=== PATIENT | male | born 1980 | race African-American/Black ===

== ENCOUNTER 2019-08-04 22:02 | Emergency (ER) | payer OTHER ==
[~2019-08-04] VITALS: Ht 177.8 cm; Wt 93.9 kg
[2019-08-04 23:00] VITALS: BP 124/86
[2019-08-05] MEDS ORDERED: DOXYCYCLINE 10100 MG PO (17:22)
[2019-08-05] MEDS ORDERED: NORCO 5-325 TA1 EAC1 PO (17:22)
== END 2019-08-04 23:17 | disposition home or self-care (01) ==
LOC: ER 22:02
DX: T63.301A Toxic effect of unspecified spider venom, accidental (unintentional), initial encounter (principal); F17.210 Nicotine dependence, cigarettes, uncomplicated; Y92.89 Other specified places as the place of occurrence of the external cause

== ENCOUNTER 2019-08-05 16:10 | Emergency (ER) | payer OTHER ==
[~2019-08-05] VITALS: Ht 177.8 cm; Wt 93.9 kg
[2019-08-05] MEDS ORDERED: DOXYCYCLINE 10100 MG PO (17:22)
[2019-08-05] MEDS ORDERED: NORCO 5-325 TA1 EAC1 PO (17:22)
[2019-08-05 17:51] VITALS: BP 115/74
== END 2019-08-05 17:52 | disposition home or self-care (01) ==
LOC: ER 16:10
DX: S80.261A Insect bite (nonvenomous), right knee, initial encounter (principal); F17.210 Nicotine dependence, cigarettes, uncomplicated; W57.XXXA Bitten or stung by nonvenomous insect and other nonvenomous arthropods, initial encounter; Y93.89 Activity, other specified; Y92.89 Other specified places as the place of occurrence of the external cause; Y99.8 Other external cause status

== ENCOUNTER 2019-08-09 17:21 | Inpatient (IN) | payer OTHER ==
[~2019-08-09] VITALS: Ht 177.8 cm; Wt 94.8 kg
[~2019-08-09 17:21] MED LIST: DOXYCYCLINE 10100 MG PO; NORCO 5-325 TA1 EAC1 PO
[2019-08-09 17:25] VITALS: BP 116/87
[2019-08-09 19:32] LABS: ABSOLUTE NEUTROPHILS 10.4 thou/uL (1.4-8.2); BASOPHILS 0.5 % (0.0-2.0); EOSINOPHILS 1.1 % (0.0-3.0); HEMATOCRIT 43.2 % (42.0-52.0); HEMOGLOBIN 14.6 gm/dL (14.0-18.0); LYMPHOCYTES 10.2 % (24.0-44.0); MCH 29.7 pg (26.0-34.0); MCHC 33.7 g/dL (28.0-37.0); MONOCYTES 4.1 % (1.0-8.0); PLATELET COUNT 241 thou/uL (150-400); POLYS 84.1 % (36.0-66.0); RBC 4.91 mil/uL (4.50-6.00); WBC 12.4 thou/uL (4.0-11.0)
[2019-08-09 19:41] LABS: CALCIUM 8.9 mg/dL (8.5-10.1); CREATININE 0.9 mg/dL (0.7-1.3); POTASSIUM 4.1 mmol/L (3.5-5.1)
[2019-08-09 20:32] VITALS: BP 116/70
[2019-08-09 20:41] VITALS: BP 107/64
[2019-08-09] MEDS ORDERED: ROXICODONE5 M2 PO (21:10)
[2019-08-09 21:45] VITALS: BP 121/71
[2019-08-09 23:28] VITALS: BP 129/86
[2019-08-10 03:42] VITALS: BP 135/87
--- NOTE | 2019-08-10 04:37 | NUR ---
ADIMTTED FROM ER UNDER 'S CARE. AXOX4. INDEPENDENT WITH ADLs. RLE CELLULTIIS. SEEN BY STEPH HENDRICKS ACADEMIC ADVISEMENT DIRECTOR FOR . MED REC COMPLETED AND HOME PAIN MEDS RESUMED. VSS. NO S/S ACUTE DISTRESS NOTED OR REPORTED AT THIS TIME. WILL CONT TO MONITOR FOR ANY CHANGES IN CONDITION.
[2019-08-10 07:05] VITALS: BP 114/76
[2019-08-10 15:52] VITALS: BP 111/73
--- NOTE | 2019-08-10 15:56 | NUR ---
PT ADMITTED RELATED TO RLE CELLULITIS. CM REVIEWED CHART AND SPOKE WITH CARE TEAM. CM MET WITH PT AT BEDSIDE THIS DAY. PT IS A&O X4. CM ROLE INTRODUCED. PT INDICATED HE LIVES IN A HOUSE WITH HIS SPOUSE WITH ABOUT 10 STEPS TO ENTER AND 6 STEPS INSIDE. PT INDICATED HE HAD BEEN INDEPENENT WITH GAIT AND ADLS VIRTUAL RECRUITER. PT INDICATED NO DME VIRTUAL RECRUITER. PT INDICATED HIS PCP IS DR. MARCELO DELUCA. PT INDICATED HE PLANS TO RETURN HOME ONCE MEDICALLY STABLE. CM TO FOLLOW INDICATED WITH DC PLANNING.
[2019-08-10 19:35] VITALS: BP 126/77
--- NOTE | 2019-08-10 19:43 | NUR ---
VSS-AFEBRILE. OOB AD IRENE-STEADY ON FEET. BLACK ESCHAR-LIKE BITE ON RIGHT POSTERIOR CALF REMAINS, ERYTHEMA AND SWELLING SURROUND THE WOUND. PO PAIN MEDICATION PROVIDES PARTIAL RELIEF OF PAIN AND DISCOMFORT. PATIENT REQUESTING THAT WOUND CARE PHYSICIAN EVALUATE WOUND BEFORE BEING DISCHARGED.
--- NOTE | 2019-08-11 01:37 | NUR ---
PATIENT AOX4 MAKES NEEDS KNOWN. PATIENT ADMITTED FOR RLE SPIDER BITE. RLE IS WARM TO TOUCH NO REDNESS, BLACK SPOT ON THE BITE PATIENT C/O ITCING PRN BENADRLY GIVEN PER ORDER. PATIENT AMBULATES WITH STEADY GAITS. PATIENT HAD A SHOWER.PATIENT IN BED ASLEEP AT THIS TIME BREATHING REGULAR AND UNLABOURED
[2019-08-11 06:02] LABS: HEMATOCRIT 41.3 % (42.0-52.0); HEMOGLOBIN 13.4 gm/dL (14.0-18.0); MCH 29.3 pg (26.0-34.0); MCHC 32.4 g/dL (28.0-37.0); MCV 90.3 fL (80.0-100.0); RBC 4.58 mil/uL (4.50-6.00); RDW 14.1 % (10.5-14.5); WBC 8.6 thou/uL (4.0-11.0)
[2019-08-11 06:07] LABS: CALCIUM 8.4 mg/dL (8.5-10.1); CREATININE 1.1 mg/dL (0.7-1.3); POTASSIUM 4.4 mmol/L (3.5-5.1)
[2019-08-11 07:16] VITALS: BP 102/71
[2019-08-11 16:30] VITALS: BP 111/75
[2019-08-11 18:58] VITALS: BP 122/80
--- NOTE | 2019-08-11 20:09 | NUR ---
Assumed pt care this am, VS stable. Pt and are questioning why theres is no consult for surgery given the nature of the wound (spider bite), why the blood cultures were never drawn in the ED, as per documentation 08/09 @ 18:41 "blood cultures cancelled: patient already getting antibiotics per Nany". This was prior admission. Pain managed with medication. of the pt has requested for Dr. Snow to be off the case, Dr. Michaud informed. POC followed, no signs and verbalizations of distress noted. Called lab with regards to the deatials of the boold cultures, spoke to Kelly, awating feedback.
--- NOTE | 2019-08-12 04:34 | NUR ---
ASSUMED PT CARE AROUND 193. AXOX4. INDEPENDENT WITH ADLs. VANC TROUGH RESULTS REPORTED TO PHARM Jessica GARCIA. PAIN MANAGED PER MD ORDER. NO S/S ACUTE DISTRESS NOTED OR REPORTED AT THIS TIME. WILL CONT TO MONITOR FOR ANY CHANGES IN CONDITION.
[2019-08-12 07:34] VITALS: BP 120/81
--- NOTE | 2019-08-12 10:06 | NUR ---
Received awake on bed. Due medications given as prescribed, able to swallow meds w/o difficulty. On room air. Up ad navarro, independent with ADLs. Vital signs stable. On regular diet- tolerating well; no nausea, no vomiting and no abdominal pain noted. With spider bite at R LE. Pt complained of pain, due PRN pain meds given as prescribed. Pt's went to the darling this AM and got upset and requested Dr Snow to be off his case; no pending labs as per report received from cook night nurse. Charge nurse talked to laboratory and Dr Enciso re: pt's request- as per Dr Enciso, will see pt today.
[2019-08-12 16:14] VITALS: BP 146/95
[2019-08-12 16:17] VITALS: BP 134/86
[2019-08-12 20:24] VITALS: BP 133/86
--- NOTE | 2019-08-13 04:17 | NUR ---
ASSUMED PT CARE AROUND 1915. AXOX4. FAMILY AT BEDSIDE. ESCORTED PT OUT TO MAIN ENTRANCE SO PT CAN TAKE HIS SON TO THE CAR. PT VERBALIZED THAT HE WATNED TO SMOKE WHILE HE WAS TAKING HIS FAMILY OUT TO CAR. INFORMED PT THAT THIS HOSPITAL IS SMOKING FREE CAMPUS. PT GOT VERY UPSET. ASKED PT IF HE WANTED NICOTINE PATCH, PT DECLINED AND VERBALIZED FRUSTRAION. WALKED ON CAMPUS WITH PT AND HAD A CONVERSATION ABOUT PT'S FRUSTRATION ABOUT BEING CONTAINED AT THE HOSPITAL. CAME BACK TO ROOM SAFELY. WOUND CARE TO R POSTERIOR THIGHT RENDERED AT BEDSIDE. PAIN MEDS GIVEN PER MD ORDER. #15 BLADR ACQUIRED FROM ER AND LIDOCAINE READY IN MEDROOM FOR . NO S/S ACUTE DISTRESS NOTED OR REPORTED AT THIS TIME. WILL CONT TO MONITOR FOR ANY CHANGES IN CONDITION.
[2019-08-13 08:05] VITALS: BP 132/86
--- NOTE | 2019-08-13 08:11 | NUR ---
Nutrition: Note admit for RLE cellulitis. Per chart review, pt w/ R thigh wound related to a spider bite. Wound care seeing. On a regular diet and eating incredibly high, consistent amounts. Nearly 100% intake at all meals, with a 99% meal average per the last 9 consumed meals. No identified nutrition needs at this time, deemed low nutrition risk.
--- NOTE | 2019-08-13 12:49 | NUR ---
PT IS TO HAVE DEBRIDEMENT TODAY. CARE TEAM INDICATED THAT DC IS ANTICIAPTED FOR TOMORROW. CM TO FOLLOW INDICATED WITH DC PLANNING.
--- NOTE | 2019-08-13 19:00 | NUR ---
Assumed patient care at 0715. Vital signs have been stable. He has had two doses of Oxycodone for right posterior leg pain. Patient does not want anymore Vancomycin because "it has ruined my veins!" Dr lCark came and did Debridement to wound with assist from this nurse, informed patient that he could be Discharged in his eyes. Patient was excited, opened up his appointment Book for Haircuts tomorrow at 10am. Dr Enciso had explained to patient that he could not be Discharged until tomorrow. He informed this nurse that he will be in at approximately 8am tomorrow. Girlfriend/ notified [id number]. She will be here early am. On-coming nurse informed.
[2019-08-13 19:04] VITALS: BP 121/70
--- NOTE | 2019-08-13 22:40 | NUR ---
Assumed care of this pt. at 1900 and ended at 2300. He was given po pain med for c/o pain to his right interior thigh. Also, given po benadryl for c/o some itching (see emar). Dressing to right interior thigh is dry and intact.
--- NOTE | 2019-08-14 02:31 | NUR ---
care assumed at 2200, patient was in bed asleep no s/s of pain or discomfort. dressing on the right inner thigh is c/d/i. patient in bed asleep at this time breathing regular and unlaboured.
[2019-08-14 07:42] VITALS: BP 122/74
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
[2019-08-14] MEDS ORDERED: CLEOCIN HCL300 MG PO (09:30)
[2019-08-14 09:35] VITALS: BP 122/74
--- NOTE | 2019-08-14 10:20 | NUR ---
Assumed pt care this am, pt was anxious and stated he has leave before 9 am. Pt and had this discussion with the MD prior. Pt was already dressed and ready to do at 7:30 am. VS taken and am medications given, wound ressing done, not able to take wound pictures since pt was already late uin leaving. DC instructions and presctiprions given to the pt. POC followed no signs or vrbalizations of distress noted. Pt is now, dc.
== END 2019-08-14 09:40 | disposition home or self-care (01) | DRG 854 ==
LOC: ER 17:21 → EROBS 19:55 → 4W 19:55
PROVIDERS: Nurse Practitioner Acute Care; Physician Assistant; ADMIT Hospitalist
PROC: 0JBL0ZZ Excision of Right Upper Leg Subcutaneous Tissue and Fascia, Open Approach (ICD-10-PCS; principal; 2019-08-13)
DX: A41.9 Sepsis, unspecified organism (principal); L03.115 Cellulitis of right lower limb; F17.210 Nicotine dependence, cigarettes, uncomplicated; F12.90 Cannabis use, unspecified, uncomplicated; S70.361A Insect bite (nonvenomous), right thigh, initial encounter; L97.119 Non-pressure chronic ulcer of right thigh with unspecified severity; Z85.51 Personal history of malignant neoplasm of bladder; Z80.0 Family history of malignant neoplasm of digestive organs; Z83.6 Family history of other diseases of the respiratory system; Z71.6 Tobacco abuse counseling
CPT/HCPCS: 10040; 10045